=== PATIENT | male | born 1940 | race Caucasian/White ===

== ENCOUNTER 2016-10-29 11:07 | Day surgery (SDC) | payer MEDICARE, OTHER ==
[2016-10-21 14:40] LABS: BASOPHILS ABSOLUTE 0.03 10/3/uL (0.0-0.16); EOSINOPHILS 4.2 %; EOSINOPHILS ABSOLUTE 0.13 10/3/uL (0.0-0.53); HEMATOCRIT 38.7 % (40.0-51.0); IMMATURE GRANULOCYTES 0.3 %; IMMATURE GRANULOCYTES ABSOLUTE 0.01 10/3/uL (0.0-0.11); LYMPHOCYTES 11.9 %; LYMPHOCYTES ABSOLUTE 0.37 10/3/uL (0.67-4.30); MEAN CORPUS HGB CONC 33.6 g/dL (32.0-36.0); MEAN PLATELET VOLUME 11.1 fL (9.2-13.0); MONOCYTES 11.5 %; MONOCYTES ABSOLUTE 0.36 10/3/uL (0.21-1.20); NEUTROPHILS 71.1 %; NEUTROPHILS ABSOLUTE 2.22 10/3/uL (2.02-8.40); PLATELET COUNT 80 10/3/uL (150-400); RBC DISTRIBUTION WIDTH 13.9 % (12.0-16.0); RED CELL COUNT 4.19 10/6/uL (4.7-6.1); WHITE BLOOD CELLS 3.1 10/3/uL (4.5-10.5)
[2016-10-21 14:41] LABS: MANUAL DIFF NO %; MEAN CORPUSCULAR VOLUME 92.4 fL (80-100)
[2016-10-21 14:47] LABS: INTERNATIONAL NORMAL RATI 1.2 UNITS (-); PARTIAL THROMBO TIME 29.7 SEC (22.5-37.2); PROTIME (NOT ORD) 14.7 SEC (12.0-14.5)
[2016-10-21 15:01] LABS: BUN (BLOOD UREA NITROGEN) 22 MG/DL (6-23); CALCIUM, SERUM 8.5 MG/DL (8.5-10.4); CHLORIDE, SERUM 107 MMOL/L (96-112); CO2 (CARBON DIOXIDE) 30 MMOL/L (24-34); CREATININE 0.79 MG/DL (0.70-1.30); DIRECT BILIRUBIN 0.1 MG/DL (0.0-0.4); GFR AFRICAN AMERICAN 100 ML/MIN (>=60); GFR NON AFRICAN AMERICAN 86 ML/MIN (>=60); INDIRECT BILIRUBIN(NOT ORDER) 0.4 MG/DL (0.1-0.9); POTASSIUM, SERUM 4.4 MMOL/L (3.5-5.3); SGOT(AST) 40 U/L (5-40); SGPT(ALT) 40 U/L (5-65); SODIUM, SERUM 143 MMOL/L (135-148); TOTAL BILIRUBIN 0.5 MG/DL (0-1.2)
[2016-10-21 15:02] LABS: A/G RATIO 0.9 (0.7-1.9); ALBUMIN 2.7 G/DL (3.5-5.0); ALKALINE PHOSPHATASE 127 U/L (45-117); GLOBULIN 2.9 G/DL (2.5-4.1); GLUCOSE, SERUM 185 MG/DL (60-99); TOTAL PROTEIN 5.6 G/DL (6.0-8.5)
--- NOTE | ~2016-10-29 | OP ---
Record Of Operation [facility] [address] [place]. [address] NAME: DELFINA AGGARWAL : 36 STATUS : REG [facility] [place] PAT#: [id number] AGE: 76 ADM/REG DATE : 10/29/16 MR#: [id number] REPORT SERV DATE: 10/29/16 DICTATED BY: DANIELITO RAO DATE: 10/29/16 REPORT STATUS : Draft TRANSCRIBED BY: MODL DATE: 10/29/16 DATE OF PROCEDURE: 10/29/2016 PREOPERATIVE DIAGNOSIS: Incarcerated left inguinal hernia. POSTOPERATIVE DIAGNOSIS: Indirect left inguinal hernia with essentially a communicating hydrocele with a fluid-filled mass in the left spermatic cord. PROCEDURE: Left spermatic cord exploration followed by an open mesh left inguinal hernia repair. SURGEON: Danielito Rao M.D. ANESTHESIA: General laryngeal mask. ESTIMATED BLOOD LOSS: Nil. FLUIDS: Crystalloid. SPECIMEN: Hernia sac as well as cord lipoma. DRAINS: None. COMPLICATIONS: None. CONDITION: Good. INDICATIONS: Mr. Aggarwal is a 76-year-old, who presented to office with a painful irreducible tender mass in the left spermatic cord midway between the pubic symphysis and the scrotal sac. Interestingly, there was not a significant hernia mass coming up over pubic tubercle or in the region of the thigh. The symptoms were very much consistent with a hernia and after reviewing options, I have recommended that we proceed with exploration and repair. 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 DESCRIPTION OF PROCEDURE: After being identified and marked in preop holding, he was brought to OR and positioned supine. General laryngeal mask anesthesia was induced. Time-out was performed. Genitalia, inguinal region, lower abdomen bilateral prepped and draped sterilely. There was a palpable mass from within the cord left below the pubic tubercle. We infiltrated local 0.25% Marcaine in the skin, made a longitudinal incision, dissected through the subcutaneous layer and exposed the cord and there appeared to be a significant peritoneal/hydrocele sac in addition to a rather large fatty lipoma within the cord. We carefully dissected in the cord the vas and the vessels clear of the lipoma and hydrocele sac. This did not extend distal into the scrotum. We dissected proximal and extended up to and within the external ring. At this point, we extended the incision into the inguinal canal proper opening all layers with electrocautery and then opened the Record Of Operation [place] [id number] [place]. [address] NAME: DELFINA AGGARWAL : 36 STATUS : REG [facility] PAT#: [id number] AGE: 76 ADM/REG DATE : 10/29/16 MR#: [id number] REPORT SERV DATE: 10/29/16 DICTATED BY: DANIELITO RAO DATE: 10/29/16 REPORT STATUS : Draft TRANSCRIBED BY: GERMÁN DATE: 10/29/16 external oblique with a 15 blade scalpel and Metzenbaum scissors. Very clearly had an indirect hernia defect and the fluid-filled sac extended all the way up to the internal ring as did the cord lipoma. We dissected the sac and the lipoma up to the level of the internal ring. At this point, we divided the lipoma with cautery at the internal ring level and sent it as specimen. I was able milk the fluid within the sac back into the peritoneal cavity. We twisted the sac, which was empty, suture ligated with 3-0 Vicryl and then amputated the distal sac, sending it as specimen. Precut mesh Prolene was placed on the floor of canal, narrow tail lateral, wide tail medial. It was anchored adjacent to pubic tubercle and along the iliopubic tract with interrupted 2- 0 Ethibond. The mesh tails were overlapped, sutured to each other, recreate internal ring with 2-0 Ethibond and then the overlapped tails were sutured to the iliopubic tract laterally. We then placed additional medial interrupted 2-0 Ethibond sutures to the rectus sheath to hold the mesh smoothly. I had a good, tension-free repair. We broadly infiltrated the floor of the canal as well as the layers of the abdominal wall with 0.25% Marcaine. The [place], which had been previously placed was removed. External oblique aponeurosis was closed with running 3-0 Vicryl. Benny's fascia was closed with 3-0 Vicryl. Superficial and subcu was closed with 3-0 Vicryl. Dermis was closed with 4-0 Monocryl, followed by Benzoin, Steri-Strips, and sterile dressing. Mr. Aggarwal tolerated surgery quite well. He recovered from anesthesia, extubated and transported to recovery room in good condition. SANGITA/GERMÁN Danielito Rao M.D. / [id number] CC: Fredi Oates LISA M
[~2016-10-29 11:07] MED LIST: AMARYL2 PO; AMARYL4 PO; ASA5GR PO; ASAB PO; GLUCOPHAGE1000 MG PO; GLUCPH PO; IRON PO; NOVOLOG SC; OTC IRON PO; PRAVAC PO; PRAVACHOL40 MG PO; PRIN10 PO; PRIN20 PO
[2016-10-29 12:03] LABS: BASOPHILS 0.7 %; BASOPHILS ABSOLUTE 0.02 10/3/uL (0.0-0.16); EOSINOPHILS 4.5 %; EOSINOPHILS ABSOLUTE 0.13 10/3/uL (0.0-0.53); HEMATOCRIT 38.9 % (40.0-51.0); HEMOGLOBIN 12.9 g/dL (13.6-17.8); IMMATURE GRANULOCYTES 0.3 %; IMMATURE GRANULOCYTES ABSOLUTE 0.01 10/3/uL (0.0-0.11); LYMPHOCYTES 14.4 %; LYMPHOCYTES ABSOLUTE 0.42 10/3/uL (0.67-4.30); MANUAL DIFF NO %; MEAN CORPUS HGB CONC 33.2 g/dL (32.0-36.0); MEAN CORPUSCULAR HEMOGLOB 30.2 pg (26.0-34.0); MEAN CORPUSCULAR VOLUME 91.1 fL (80-100); MEAN PLATELET VOLUME 10.9 fL (9.2-13.0); MONOCYTES 9.3 %; MONOCYTES ABSOLUTE 0.27 10/3/uL (0.21-1.20); NEUTROPHILS 70.8 %; NEUTROPHILS ABSOLUTE 2.06 10/3/uL (2.02-8.40); PLATELET COUNT 73 10/3/uL (150-400); RED CELL COUNT 4.27 10/6/uL (4.7-6.1); WHITE BLOOD CELLS 2.9 10/3/uL (4.5-10.5)
[2016-10-29 12:22] LABS: PLATELET ESTIMATE DEC (ADEQUATE); RBC MORPHOLOGY NORM (NORMAL)
[2016-12-22] MEDS ORDERED: CYANO1000T PO (12:48)
[2017-05-24] MEDS ORDERED: L40 PO (19:27)
[2017-05-24] MEDS ORDERED: PRAVACHOL40 MG PO (19:27)
[2017-05-24] MEDS ORDERED: PRIN10 PO (19:28)
[2017-05-24] MEDS ORDERED: KDUR10 PO (19:28)
[2017-05-24] MEDS ORDERED: AMARYL4 PO (19:28)
[2017-05-24] MEDS ORDERED: PRILO PO (19:28)
[2017-05-24] MEDS ORDERED: HALF81 PO (19:28)
[2017-05-24] MEDS ORDERED: LANTUS SC (19:29)
[2017-05-24] MEDS ORDERED: NOVOLOG SC (19:29)
[2017-05-24] MEDS ORDERED: VITAMIN B-12 PO (19:29)
[2017-05-24] MEDS ORDERED: *UNABLE2 (19:38)
[2017-05-25] MEDS ORDERED: ZANAFLEX 4 MG TA4 MG PO (14:04)
[2017-05-25] MEDS ORDERED: IRON PO (14:07)
[2017-05-29] MEDS ORDERED: NOVOLOG SC (11:32)
[2017-05-29] MEDS ORDERED: GI COCKTAIL PO (11:33)
[2017-05-29] MEDS ORDERED: LIPITOR40 PO (11:33)
[2017-05-29] MEDS ORDERED: COZ50 PO (11:34)
[2017-05-29] MEDS ORDERED: LOP25 PO (11:34)
[2017-05-29] MEDS ORDERED: LEVAQUIN750 MG PO (11:34)
[2017-05-29] MEDS ORDERED: FLAG500TAB PO (11:35)
== END 2016-10-29 19:41 | disposition home or self-care (01) ==
LOC: SDC 11:07
PROVIDERS: Surgery
PROC: 0YU60JZ Supplement Left Inguinal Region with Synthetic Substitute, Open Approach (ICD-10-PCS; principal; 2016-10-29 12:00)
DX: K40.90 Unilateral inguinal hernia, without obstruction or gangrene, not specified as recurrent (principal); D17.24 Benign lipomatous neoplasm of skin and subcutaneous tissue of left leg; I10 Essential (primary) hypertension; E78.00 Pure hypercholesterolemia, unspecified; I25.10 Atherosclerotic heart disease of native coronary artery without angina pectoris; M19.90 Unspecified osteoarthritis, unspecified site; E11.9 Type 2 diabetes mellitus without complications; F32.9 Major depressive disorder, single episode, unspecified; K74.60 Unspecified cirrhosis of liver; D64.9 Anemia, unspecified; F41.9 Anxiety disorder, unspecified; Z95.5 Presence of coronary angioplasty implant and graft; Z90.49 Acquired absence of other specified parts of digestive tract; Z98.890 Other specified postprocedural states
CPT/HCPCS: 80053; 80076; 82248; 82962; 85025; 85610; 85730; 88302; 88304; 93005; A9270-GY; C1781; J0690; J2370; J2405; J2710; J3010

== ENCOUNTER 2016-12-26 13:17 | Day surgery (SDC) | payer MEDICARE, OTHER ==
--- NOTE | ~2016-12-26 | EGD ---
EGD REPORT [facility] [address] [address] NAME: RUBEN AGGARWAL : 36 STATUS : REG [facility]#: [id number] AGE: 76 ADM/REG DATE : 12/26/16 MR#: [id number] REPORT SERV DATE: 12/26/16 DICTATED BY: DAJA SCHUSTER DATE: 12/26/16 REPORT STATUS : Draft TRANSCRIBED BY: [employer] DATE: 12/26/16 [facility] Patient Name: Ruben Aggarwal Date of : 1940 Attending MD: DAJA SCHUSTER MD Procedure Date No Time: 12/26/2016 Procedure: Colonoscopy Indications: Diarrhea, Last colonoscopy: July 2014 Referring MD: LIBIA MONDRAGON Medicines: See the Anesthesia note for documentation of the administered medications Complications: No immediate complications. Procedure: Pre-Anesthesia Assessment: - ASA Grade Assessment: III - A patient with severe systemic disease. After I obtained informed consent, the scope was passed under direct vision. Throughout the procedure, the patient's blood pressure, pulse, and oxygen saturations were monitored continuously. The PCF [id number] was introduced through the anus and advanced to the cecum, identified by appendiceal orifice and ileocecal valve. The colonoscopy was performed without difficulty. The patient tolerated the procedure well. The quality of the bowel preparation was fair. Findings: The perianal and digital rectal examinations were normal. Internal hemorrhoids were found during retroflexion and were large. A flat polyp was found in the cecum. The polyp was 15 mm in size. The polyp was removed with a piecemeal technique using a hot snare. Resection and retrieval were complete. Difficult position in cecum. Normal mucosa was found in the ascending colon. Biopsies were taken with a cold forceps for histology. Easily bled with bx. The rectum appeared normal. Biopsies were taken with a cold forceps for histology. Easily bled with Bx. Fair prep, scattered fecal debris Impression: - Internal hemorrhoids. - One 15 mm polyp in the cecum. Resected and retrieved. - Normal mucosa in the ascending colon. Biopsied. - The rectum is normal. Biopsied. - Fair prep, scattered fecal debris Recommendation: - Patient has a contact number available for emergencies. The signs and symptoms of potential delayed EGD REPORT [address] [address] NAME: RUBEN AGGARWAL : 36 [place]US : [place] [facility] PAT#: [id number] AGE: 76 ADM/REG DATE : 12/26/16 MR#: [id number] REPORT SERV DATE: 12/26/16 DICTATED BY: DAJA SCHUSTER DATE: 12/26/16 REPORT STATUS : Draft TRANSCRIBED BY: [employer] DATE: 12/26/16 complications were discussed with the patient. Return to normal activities tomorrow. Written discharge instructions were provided to the patient. - Regular diet. - Continue present medications. - Repeat colonoscopy for surveillance based on pathology results. - Return to my office in 6 weeks. - FOR YOUR BIOPSY RESULTS: Please go to [email or web address] and register to receive your results via the portal. Your biopsy results will be posted there in about 7 to 10 days. IF you do not see result in 10 days, call office. Procedure Code(s): --- Professional --- 17300, Colonoscopy, flexible, proximal to splenic flexure; with removal of tumor(s), polyp(s), or other lesion(s) by snare technique 30579, 59, Colonoscopy, flexible, proximal to splenic flexure; with biopsy, single or multiple Diagnosis Code(s): --- Professional --- K64.8, Other hemorrhoids D12.0, Benign neoplasm of cecum R19.7, Diarrhea, unspecified CPT copyright 2013 [employer]. All rights reserved. The codes documented in this report are preliminary and upon shell trim operator review may be revised to meet current compliance requirements. Daja Schuster MD DAJA SCHUSTER MD 12/26/2016 3:23 PM This report has been signed electronically. Number of Addenda: 0 Note Initiated On: 12/26/2016 2:37 PM Scope Withdrawal Time 0 hours 19 minutes 17 seconds [address] [place] [address]
--- NOTE | ~2016-12-26 | EGD ---
EGD REPORT [facility] [address] [place] [address] NAME: RUBEN AGGARWAL : 36 STATUS : REG [facility]#: [id number] AGE: 76 ADM/REG DATE : 12/26/16 MR#: [id number] REPORT SERV DATE: 12/26/16 DICTATED BY: DAJA SCHUSTER DATE: 12/26/16 REPORT STATUS : Draft TRANSCRIBED BY: [employer] DATE: 12/26/16 Endoscopy Center Patient Name: Ruben Aggarwal Date of : 1940 Attending MD: DAJA SCHUSTER MD Procedure Date No Time: 12/26/2016 Procedure: Upper GI endoscopy Indications: Follow-up of esophageal varices Referring MD: LIBIA MONDRAGON Medicines: See the Anesthesia note for documentation of the administered medications Complications: No immediate complications. Procedure: Pre-Anesthesia Assessment: - ASA Grade Assessment: III - A patient with severe systemic disease. After obtaining informed consent, the endoscope was passed under direct vision. Throughout the procedure, the patient's blood pressure, pulse, and oxygen saturations were monitored continuously. The GIF H190 [id number] was introduced through the mouth, and advanced to the second part of duodenum. The upper GI endoscopy was accomplished without difficulty. The patient tolerated the procedure well. Findings: The examined duodenum was normal. Biopsies were taken with a cold forceps for histology. Portal hypertensive gastropathy was found in the entire examined stomach. Portal hypertensive gastropathy was found in the gastric fundus (on retroflexion). A small hiatus hernia was present. 1-2 plus esophageal varices Impression: - Normal examined duodenum. Biopsied. - Portal hypertensive gastropathy. - Portal hypertensive gastropathy. - Hiatus hernia. - 1-2 plus esophageal varices Recommendation: - Patient has a contact number available for emergencies. The signs and symptoms of potential delayed complications were discussed with the patient. Return to normal activities tomorrow. Written discharge instructions were provided to the patient. - Regular diet. EGD REPORT [address] [address] NAME: RUBEN AGGARWAL : 36 STATUS : REG [facility]#: [id number] AGE: 76 ADM/REG DATE : 12/26/16 MR#: [id number] REPORT SERV DATE: 12/26/16 DICTATED BY: DAJA SCHUSTER DATE: 12/26/16 REPORT STATUS : Draft TRANSCRIBED BY: [employer] DATE: 12/26/16 - Continue present medications. - Repeat the upper endoscopy in 1 year for surveillance. Procedure Code(s): --- Professional --- 97199, Esophagogastroduodenoscopy, flexible, transoral; with biopsy, single or multiple Diagnosis Code(s): --- Professional --- K76.6, Portal hypertension K31.89, Other diseases of stomach and duodenum K44.9, Diaphragmatic hernia without obstruction or gangrene I85.00, Esophageal varices without bleeding CPT copyright 2013 [employer]. All rights reserved. The codes documented in this report are preliminary and upon denture contour wire specialist review may be revised to meet current compliance requirements. Daja Schuster MD DAJA SCHUSTER MD 12/26/2016 2:55 PM This report has been signed electronically. Number of Addenda: 0 Note Initiated On: 12/26/2016 2:41 PM Scope Withdrawal Time 0 hours 0 minutes 0 seconds [address] [place] [address]
[~2016-12-26 13:17] MED LIST changes: +CYANO1000T PO
[2017-05-24] MEDS ORDERED: L40 PO (19:27)
[2017-05-24] MEDS ORDERED: PRAVACHOL40 MG PO (19:27)
[2017-05-24] MEDS ORDERED: PRIN10 PO (19:28)
[2017-05-24] MEDS ORDERED: PRILO PO (19:28)
[2017-05-24] MEDS ORDERED: AMARYL4 PO (19:28)
[2017-05-24] MEDS ORDERED: KDUR10 PO (19:28)
[2017-05-24] MEDS ORDERED: HALF81 PO (19:28)
[2017-05-24] MEDS ORDERED: NOVOLOG SC (19:29)
[2017-05-24] MEDS ORDERED: VITAMIN B-12 PO (19:29)
[2017-05-24] MEDS ORDERED: LANTUS SC (19:29)
[2017-05-24] MEDS ORDERED: *UNABLE2 (19:38)
[2017-05-25] MEDS ORDERED: ZANAFLEX 4 MG TA4 MG PO (14:04)
[2017-05-25] MEDS ORDERED: IRON PO (14:07)
[2017-05-29] MEDS ORDERED: NOVOLOG SC (11:32)
[2017-05-29] MEDS ORDERED: LIPITOR40 PO (11:33)
[2017-05-29] MEDS ORDERED: GI COCKTAIL PO (11:33)
[2017-05-29] MEDS ORDERED: LOP25 PO (11:34)
[2017-05-29] MEDS ORDERED: COZ50 PO (11:34)
[2017-05-29] MEDS ORDERED: LEVAQUIN750 MG PO (11:34)
[2017-05-29] MEDS ORDERED: FLAG500TAB PO (11:35)
== END 2016-12-26 23:59 | disposition home health service (06) ==
LOC: DMU 13:17
PROVIDERS: Internal Medicine Gastroenterology
PROC: 0DBH8ZZ Excision of Cecum, Via Natural or Artificial Opening Endoscopic (ICD-10-PCS; 2016-12-26)
PROC: 0DB98ZX Excision of Duodenum, Via Natural or Artificial Opening Endoscopic, Diagnostic (ICD-10-PCS; principal; 2016-12-26 15:00)
PROC: 0DBP8ZX Excision of Rectum, Via Natural or Artificial Opening Endoscopic, Diagnostic (ICD-10-PCS; 2016-12-26 15:00)
PROC: 0DBK8ZX Excision of Ascending Colon, Via Natural or Artificial Opening Endoscopic, Diagnostic (ICD-10-PCS; 2016-12-26 15:00)
DX: D12.0 Benign neoplasm of cecum (principal); K64.8 Other hemorrhoids; K76.6 Portal hypertension; K44.9 Diaphragmatic hernia without obstruction or gangrene; I85.00 Esophageal varices without bleeding; E11.9 Type 2 diabetes mellitus without complications; E78.00 Pure hypercholesterolemia, unspecified; M19.90 Unspecified osteoarthritis, unspecified site; I25.10 Atherosclerotic heart disease of native coronary artery without angina pectoris; I10 Essential (primary) hypertension; F41.9 Anxiety disorder, unspecified; F32.9 Major depressive disorder, single episode, unspecified; D64.9 Anemia, unspecified; Z87.891 Personal history of nicotine dependence; Z90.49 Acquired absence of other specified parts of digestive tract; Z98.890 Other specified postprocedural states
CPT/HCPCS: 82962; 88305